=== PATIENT | male | born 1965 | race Two or more races ===

== ENCOUNTER 2020-08-18 07:50 | Outpatient (REF) | payer OTHER, SELFPAY ==
[2020-08-18 08:38] LABS: Hematocrit 40.9 % (42-52); Hemoglobin 13.3 g/dl (14.0-18.0); Mean Corpuscular HGB Conc 32.5 g/dl (31.0-36.0); Mean Corpuscular Hemoglobin 30.4 pg (27.0-33.0); Mean Corpuscular Volume 93.4 fL (80-98); Mean Platelet Volume 10.2 fL (9.4-12.4); Platelet Count 208 X10*3/uL (160-400); Red Blood Count 4.38 X10*6/uL (4.60-5.80); Red Cell Distribution Width 12.9 % (11.0-16.0); White Blood Count 4.9 X10*3/uL (4.8-10.8)
[2020-08-18 10:01] LABS: Alanine Aminotransferase 32 U/L (0-40); Albumin Level 4.4 g/dL (3.5-5.0); Alkaline Phosphatase 59 U/L (39-117); Anion Gap 11 (12-20); Aspartate Amino Transferase 21 U/L (5-37); Bilirubin Total 0.8 mg/dL (0.0-1.0); Blood Urea Nitrogen 20 mg/dL (9-16); Calcium 8.9 mg/dL (8.4-10.2); Carbon Dioxide 29 mmol/L (22-29); Chloride 107 mmol/L (96-108); Cholesterol 147 mg/dL; Estimated Average Glucose 108 mg/dL; Estimated Glomerular Filt Rate > 60; Glucose Fasting 94 mg/dL (60-99); HDL Cholesterol 56 mg/dL; Hemoglobin A1c % 5.4 %; LDL Cholesterol Calculated 77 mg/dl; Potassium 4.2 mmol/L (3.3-5.1); Sodium 143 mmol/L (135-145); Total Protein 6.8 g/dL (6.5-8.0); Triglycerides 72 mg/dL
== END 2020-08-18 07:51 | disposition home or self-care (01) ==
LOC: HO.LAB 07:50
PROVIDERS: PCP Internal Medicine; Visit Provider Physician Assistant
DX: Z13.220 Encounter for screening for lipoid disorders (principal); Z13.29 Encounter for screening for other suspected endocrine disorder; Z12.5 Encounter for screening for malignant neoplasm of prostate; I10 Essential (primary) hypertension
CPT/HCPCS: 36415; 80053; 80061; 83036; 84153; 84443; 85027

== ENCOUNTER 2021-03-07 08:04 | Outpatient (REF) | payer OTHER, SELFPAY ==
[2021-03-07 08:55] LABS: Hematocrit 41.9 % (42-52); Hemoglobin 13.9 g/dl (14.0-18.0); Mean Corpuscular HGB Conc 33.2 g/dl (31.0-36.0); Mean Corpuscular Hemoglobin 30.3 pg (27.0-33.0); Mean Corpuscular Volume 91.5 fL (80-98); Mean Platelet Volume 10.3 fL (9.4-12.4); Platelet Count 200 X10*3/uL (160-400); Red Blood Count 4.58 X10*6/uL (4.60-5.80); Red Cell Distribution Width 13.2 % (11.0-16.0); White Blood Count 4.2 X10*3/uL (4.8-10.8)
[2021-03-07 09:03] LABS: Estimated Average Glucose 111 mg/dL; Hemoglobin A1c % 5.5 %
[2021-03-07 09:15] LABS: Alanine Aminotransferase 35 U/L (0-40); Albumin Level 4.6 g/dL (3.5-5.0); Alkaline Phosphatase 71 U/L (39-117); Anion Gap 12 (12-20); Aspartate Amino Transferase 24 U/L (5-37); Bilirubin Total 1.6 mg/dL (0.0-1.0); Blood Urea Nitrogen 13 mg/dL (9-16); Calcium 9.5 mg/dL (8.4-10.2); Carbon Dioxide 26 mmol/L (22-29); Chloride 108 mmol/L (96-108); Cholesterol 142 mg/dL; Estimated Glomerular Filt Rate > 60; Glucose Fasting 104 mg/dL (60-99); HDL Cholesterol 55 mg/dL; LDL Cholesterol Calculated 74 mg/dl; Potassium 4.2 mmol/L (3.3-5.1); Sodium 142 mmol/L (135-145); Total Protein 7.1 g/dL (6.5-8.0); Triglycerides 69 mg/dL
[2021-03-07 09:37] LABS: Prostate Specific Antigen Scr 0.45 ng/mL (<0.05-4.0); TSH reflex Free T4 1.43 uIU/mL (0.32-4.0)
== END 2021-03-07 08:05 | disposition home or self-care (01) ==
LOC: HO.LAB 08:04
PROVIDERS: PCP Internal Medicine; Visit Provider Physician Assistant
DX: Z12.5 Encounter for screening for malignant neoplasm of prostate (principal); Z13.29 Encounter for screening for other suspected endocrine disorder; Z13.220 Encounter for screening for lipoid disorders; I10 Essential (primary) hypertension
CPT/HCPCS: 36415; 80053; 80061; 83036; 84153; 84443; 85027

== ENCOUNTER 2022-03-27 08:40 | Outpatient (REF) | payer OTHER, SELFPAY ==
[2022-03-27 09:27] LABS: Hemoglobin 13.2 g/dl (14.0-18.0); Mean Corpuscular HGB Conc 32.2 g/dl (31.0-36.0); Mean Corpuscular Hemoglobin 30.5 pg (27.0-33.0); Mean Corpuscular Volume 94.7 fL (80.0-98.0); Mean Platelet Volume 10.5 fL (9.4-12.4); Platelet Count 195 X10*3/uL (160-400); Red Blood Count 4.33 X10*6/uL (4.60-5.80); Red Cell Distribution Width 13.1 % (11.0-16.0); White Blood Count 3.8 X10*3/uL (4.8-10.8)
[2022-03-27 10:29] LABS: Alanine Aminotransferase 38 U/L (0-40); Albumin Level 4.2 g/dL (3.5-5.0); Alkaline Phosphatase 59 U/L (39-117); Anion Gap 14 (12-20); Aspartate Amino Transferase 23 U/L (5-37); Bilirubin Total 1.3 mg/dL (0.0-1.0); Blood Urea Nitrogen 13 mg/dL (9-16); Calcium 9.3 mg/dL (8.4-10.2); Carbon Dioxide 28 mmol/L (22-29); Chloride 104 mmol/L (96-108); Cholesterol 125 mg/dL; Estimated Glomerular Filt Rate > 60; Glucose Fasting 95 mg/dL (60-99); HDL Cholesterol 59 mg/dL; LDL Cholesterol Calculated 55 mg/dl; Potassium 4.2 mmol/L (3.3-5.1); Sodium 142 mmol/L (135-145); Total Protein 6.6 g/dL (6.5-8.0); Triglycerides 59 mg/dL
[2022-03-27 10:44] LABS: Prostate Specific Antigen Scr 0.26 ng/mL (<0.05-4.0); TSH reflex Free T4 0.61 uIU/mL (0.32-4.0)
== END 2022-03-27 08:41 | disposition home or self-care (01) ==
LOC: HO.LAB 08:40
PROVIDERS: PCP Physician Assistant; Visit Provider Physician Assistant
DX: Z13.220 Encounter for screening for lipoid disorders (principal); Z13.1 Encounter for screening for diabetes mellitus; Z13.29 Encounter for screening for other suspected endocrine disorder; Z12.5 Encounter for screening for malignant neoplasm of prostate
CPT/HCPCS: 36415; 80053; 80061; 84153; 84443; 85027

== ENCOUNTER 2022-07-12 10:38 | Outpatient (REF) | payer OTHER, SELFPAY ==
--- NOTE | ~2022-07-12 | XR_ITS ---
EXAMINATION: XR elbow LT min 3V, XR elbow RT min 3V CLINICAL INFORMATION: Reason for Exam M25.521 - Pain in right elbow COMPARISON: None. TECHNIQUE: AP, lateral, and oblique views of the bilateral elbows XR/XR elbow LT min 3V FINDINGS/IMPRESSION: * No acute fracture or dislocation. * Joint spaces are maintained without significant degenerative change. Insertional olecranon enthesopathy. * No soft tissue abnormality.
--- NOTE | ~2022-07-12 | XR_ITS ---
EXAMINATION: XR elbow LT min 3V, XR elbow RT min 3V CLINICAL INFORMATION: Reason for Exam M25.521 - Pain in right elbow COMPARISON: None. TECHNIQUE: AP, lateral, and oblique views of the bilateral elbows XR/XR elbow RT min 3V FINDINGS/IMPRESSION: * No acute fracture or dislocation. * Joint spaces are maintained without significant degenerative change. Insertional olecranon enthesopathy. * No soft tissue abnormality.
[2022-07-12 12:36] LABS: Rheumatoid Factor < 13.0 IU/mL (<15.0)
[2022-07-12 12:48] LABS: Vitamin D 25-OH Total 27.4 ng/mL (>30)
[2022-07-12 13:21] LABS: CT PCR NOT DETECTED (Not Detect.); NG PCR NOT DETECTED (Not Detect.)
[2022-07-13 05:41] LABS: Syphilis Screen Nonreactive (Nonreactive)
[2022-07-13 06:36] LABS: HBc Num1 0.07 S/CO (0.00-0.79); HBsAGNum1 0.26 S/CO (0.00-0.99); HIV AB/AG Nonreactive (Nonreactive); HIV Num 1 0.08 S/CO (0.00-0.99); Hepatitis B Core Antibody Nonreactive (Nonreactive); Hepatitis B Surface Antigen Negative (Negative); ~HepC Num1 0.08 S/CO (0.00-0.79); ~Hepatitis B Surface Antibody NONREACTIVE (Nonreactive); ~Hepatitis C Antibody Nonreactive (Nonreactive)
[2022-07-15 13:39] LABS: Anti Nuclear Antibody Screen NEGATIVE (NEGATIVE)
== END 2022-07-12 10:39 | disposition home or self-care (01) ==
LOC: HO.LAB 10:38
PROVIDERS: PCP Internal Medicine; Visit Provider Nurse Practitioner Family
DX: M13.0 Polyarthritis, unspecified (principal); M25.521 Pain in right elbow; M25.522 Pain in left elbow; Z11.4 Encounter for screening for human immunodeficiency virus [HIV]; Z20.2 Contact with and (suspected) exposure to infections with a predominantly sexual mode of transmission; E55.9 Vitamin D deficiency, unspecified
CPT/HCPCS: 0353U; 73080; 82306; 86038; 86039; 86431; 86704; 86706; 86780; 86803; 87340; 87389

== ENCOUNTER → 2022-08-07 10:51 | Outpatient (BNVA) | payer OTHER, SELFPAY | PROVIDERS: PCP Internal Medicine; Visit Provider Nurse Practitioner Family | DX: Z13.89 Encounter for screening for other disorder (principal) ==

== ENCOUNTER 2023-03-13 08:24 | Outpatient (AMB) | payer OTHER, SELFPAY ==
[2023-03-13 08:36] VITALS: BP 122/80; PULSE 78; O2SAT 98; BMI 21.6
--- NOTE | 2023-03-13 08:36 | MHC.PC.OV ---
Vital Signs 03/13/23 08:36 Height 5 ft 5 in Weight 130 lb BMI 21.6 BP 122/80 Blood Pressure Location Lt brachial Position Sitting Pulse 78 Pulse Source Pulse Oximeter Pulse Oximetry (%) 98 Oxygen Delivery Method Room Air Intake Visit Reasons: PE Allergies Sulfa (Sulfonamide Antibiotics) [SULFA(SULFONAMIDE ANTIBIOTICS)] Allergy (Unknown, Verified 03/13/23 08:47) HIVES Medication List - Last Reconciled 03/13/23 by Pee Mosquera PA-C bisacodyl (Dulcolax (bisacodyl)) 10 mg (2 x 5 mg) PO ONCE 1 day cholecalciferol (vitamin D3) 25 mcg PO DAILY fexofenadine 180 mg PO DAILY PRN lorazepam 0.5 mg PO DAILY PRN 30 days nystatin 1 appl topical DAILY 15 days polyethylene glycol 3350 (Miralax) 238 grams PO ONCE sildenafil 100 mg PO DAILY tacrolimus 0.1% 1 appl topical DAILY terbinafine HCl 1% 1 appl topical BID 15 days Tobacco use date assessed: 07/12/22 Dental Screening Dental Screen Date: 03/13/23 Did you have a dental visit in the last 12 months?: Yes Did you have a dental problem in the last 6 months where you did not have access to dental care?: No Was dental information given to patient?: Patient has dentist HPI PE HPI Details Patient is a 57-year-old male here today for routine annual physical.? Patient has a past history significant for vitamin-D deficiency, BPH generalized anxiety disorder. concerns--> Report having multiple joint that have been in pain at times , has not used any [id number]-fctgzia anti arthritic medication. He reports a distant history of Lyme disease that was treated and wonders if this is related. Yes use diclofenac oral medication toe and feels it was effective. He is not interested in any physical therapy at this time. ARSALAN : Report having worsening anxiety. Reports his triggers are crowded places and his workplace.? He does use low-dose lorazepam on a very limited p.r.n. basis for panic attacks. Vaccine: UTD with td, UTD with COVID vac , gotten flu vaccine today, need Shingles vaccine Colonoscopy: Due for repeat colonoscopy, has bowel prep solution available to him. [facility] Medical History Peripheral vascular disease Macrocytosis without anemia Lyme disease Allergic rhinitis Vitamin D deficiency BPH (benign prostatic hyperplasia) Anxiety GERD (gastroesophageal reflux disease) Benign positional vertigo Erectile dysfunction Surgical History History of undescended testicle History of vasectomy History of inguinal hernia repair Family History Father Cancer Mother Hypertension Maternal Grandmother Myocardial infarction Social History (Updated 03/13/23 @ 08:50 by Pee Mosquera PA-C) Housing: House Alcohol intake: current Alcohol intake frequency: holidays/special occasions only Alcohol type: beer Patient Tobacco Use Status: Never used Tobacco e-Cigarette/Vaping Use: Never Used Second Hand Smoke Exposure: No service: No Current occupational status: employed 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 1. Little interest or pleasure in doing things: not at all 2. Feeling down, depressed, or hopeless: not at all 3. Trouble falling or staying asleep, or sleeping too much: not at all 4. Feeling tired or having little energy: not at all 5. Poor appetite or overeating: not at all 6. Feeling bad about yourself - or that you are a failure or have let yourself or your family down: not at all 7. Trouble concentrating on things, such as reading the newspaper or watching television: not at all 8. Moving or speaking so slowly that other people could have noticed. Or the opposite - being so fidgety or restless that you have been moving around a lot more than usual: not at all 9. Thoughts that you would be better off or of hurting yourself in some way: not at all Total score: 0 Depression Screening Interpretation: Negative Depression Screening Done: Yes [id number] - PHQ-9 Billing: Yes Source: Developed by Drs. Percy Edward, Arabella Hinojosa, Remberto Hutchison and colleagues, with an educational liaan from [employer]. Thrive Questionnaire Date Thrive assessed: 07/12/22 AUDIT C Alcohol Use Questionnaire (AUDIT-C) 1. How often do you have a drink containing alcohol?: Monthly or less 2. How many drinks containing alcohol do you have on a typical day when you are drinking?: 1 or 2 3. How often do you have six or more drinks on one occasion?: Never Total Score: 1 Score Reviewed/Action Taken: No ARSALAN-7 AMB Questionnaire ARSALAN-7 Date ARSALAN - 7 assessed: 07/12/22 Source: Developed by Drs. Percy Edward, Arabella Hinojosa, Remberto Hutchison and colleagues, with an educational liana from [employer]. Review of Systems Const Denies body aches, Denies chills, Denies excessive sweating, Denies fatigue, Denies fever(s) and Denies headache(s) Eyes Denies blurry vision ENT Denies dysphagia, Denies vertigo, Denies dizziness, Denies headache(s), Denies hearing loss and Denies tinnitus Card Denies chest pain, Denies chest pain with activity, Denies syncope, Denies irregular heart rhythm and Denies dyspnea Resp Denies chest congestion, Denies cough, Denies hemoptysis, Denies dyspnea and Denies wheezing GI Denies abdominal pain, Denies melena, Denies hematochezia, Denies coffee ground emesis, Denies dysphagia, Denies diarrhea, Denies nausea and Denies vomiting Denies difficulty urinating, Denies dysuria, Denies urinary frequency, Denies urinary hesitancy and Denies urinary urgency Musc Denies arthralgias, Denies limited range of motion, Denies muscle cramps and Denies muscle weakness Skin/Breast Denies rash and Denies skin ulcer Neuro Denies Abnormal speech present, Denies confusion, Denies vertigo, Denies dizziness, Denies syncope, Denies headache(s), Denies memory loss and Denies seizure-like activity Psych Denies anxiety, Denies confusion, Denies depression, Denies memory loss, Denies panic attacks and Denies paranoia Endo Denies excessive sweating, Denies fatigue, Denies flushing, Denies polydipsia and Denies polyuria Aller/Immun Denies wheezing Physical exam (Primary Care) Vital Signs: Last Vital Signs Pulse 78 03/13/23 08:36 BP 122/80 03/13/23 08:36 Pulse Ox 98 03/13/23 08:36 Oxygen Delivery Method Room Air 03/13/23 08:36 BMI result Body Mass Index 21.6 Tobacco/Smoking Status: Tobacco use Status Tobacco use date assessed 07/12/22 03/13/23 08:40 Patient Tobacco Use Status Never used Tobacco 03/13/23 08:40 Tobacco use type 03/06/22 08:59 e-Cigarette/Vaping Use Never Used 03/13/23 08:40 PHQ-9: PHQ-9 Score PHQ-9: Total score 0 03/13/23 08:40 Depression Screening Interpretation: Negative Thrive Assessment: Date of Thrive Assessment Date Thrive assessed 07/12/22 03/13/23 08:40 Const General: cooperative, comfortable, no acute distress, alert and awake; No confusion Orientation/consciousness: oriented to person, oriented to place, patient oriented x3 and No confusion HENMT Head: Yes normocephalic Ears: external ears normal and TM's normal bilaterally Face and sinus: No sinus tenderness Mouth: Normal oral and palatal mucosa present and tongue normal Teeth and gingiva: dentition normal and gingiva normal Throat: Yes posterior oropharynx normal, Yes tonsils normal and Yes uvula midline Eyes Conjunctivae: conjunctivae normal Sclerae: sclerae normal Pupils: Equal, round and reactive pupils present EOM: EOMs intact bilaterally Direct Ophthalmoscopy: No no photophobia Neck Neck: Yes no lymphadenopathy, No tender and Yes no JVD Thyroid: Thyroid normal Carotids: no bruits Chest Chest palpation & inspection: no tenderness Resp Effort & Inspection: normal respiratory effort, no audible wheezes, not labored and no stridor Auscultation: no crackles, no rales, no rhonchi and no wheezes Cardio Jugular venous distension: no JVD Rate: regular rate, not bradycardic and not tachycardic Rhythm: regular rhythm Bruits: no carotid bruits Peripheral pulses: Peripheral pulses 2+ throughout GI Inspection: Yes normal to inspection, No abdominal wall ecchymosis and No visible herniation Palpation (GI): Soft to palpation, nontender, no guarding, not rigid and No hepatosplenomegaly present Auscultation: normoactive bowel sounds General: Yes no CVA tenderness Back/Spine/Pelvis Back: no CVA tenderness and No back tenderness Cervical Spine: cervical ROM normal Thoracic/Lumbar Spine: thoracic and lumbar spine normal to inspection, straight leg raise negative bilaterally, No thoraco-lumbar ROM limited and No lumbar spinal tenderness Skin Lesions: no lesions Rashes: no rashes Wounds: no wounds Neuro General: oriented to person, oriented to place, patient oriented x3, CN's II-XI intact bilaterally and No confusion Cranial nerves: Yes Equal, round and reactive pupils present and Yes Normal accommodation reflex present Cognition (Neuro): normal cognition Speech: No Abnormal speech present Gait exam (Neuro): Normal gait present Motor exam (neuro): 5/5 motor strength present throughout Extrem Right upper extremity: full ROM; no cyanosis Left upper extremity: full ROM; no cyanosis Right lower extremity: no edema Left lower extremity: no edema Psych Appearance: grossly normal Mental Status: mental status grossly normal Affect: normal affect Attitude: cooperative Thought process: Normal thought process present Office Procedures Flu Questionnaire Does the patient have a severe egg allergy?: No Does the patient have severe life threatening allergies?: No Does the patient have a fever or illness today?: No Has the patient ever had Guillain-[place] Syndrome?: No Has the patient ever had any past reaction to a flu shot?: No Immunizations flu vacc [id number] 6mos up(PF) 60 mcg(15 mcgx4)/0.5 mL IM syringe Performing Provider: Pee Mosquera PA-C [facility] Administered by: Zenia Rice CMA on 03/13/23 08:42 Dose Route Admin Location Dispensed Lot Number Expiration Date NDC Assistant [employer] 0.5 mL IM Left Deltoid 0.5 mL [id number] 11/17/23 69012-394-62 [place] VIS Given Date VIS Provided VIS Publication Date 03/13/23 Single Vaccine 20 Eligibility Eligibility Date Funding Source Not [facility] Eligible 03/13/23 Private Assessment and Plan Assessment & Plan (1) Annual physical exam: Code(s): Z00.00 - Encounter for general adult medical examination without abnormal findings (2) ARSALAN (generalized anxiety disorder): Code(s): F41.1 - Generalized anxiety disorder Plan: mild anxiety which has been an existing condition for him. Does use lorazepam 0.5 mg on a very limited p.r.n. basis. (3) Polyarthritis: Code(s): M13.0 - Polyarthritis, unspecified Plan: Patient reporting polyarthritis pain. Has tried diclofenac oral that was not effective. Was trialed new med meloxicam . We did discuss the possibility of using Voltaren 1% cream on painful joints. Will consider rheumatology referral and repeat Lyme testing. Orders: Orders Vitamin D 25-OH Total Today R79.89 - Other specified abnormal findings of blood chemistry Influenza [id number] Immunization Today Z23 - Encounter for immunization Comprehensive [place]. Panel Fast Today Z13.1 - Encounter for screening for diabetes mellitus Prostate Specific Antigen Scr Today Z12.5 - Encounter for screening for malignant neoplasm of prostate, Z13.1 - Encounter for screening for diabetes mellitus Coding Level of Care Code New Pt Prev Care 40-64y(59112) Diagnoses Annual physical exam Z00.00 ARSALAN (generalized anxiety disorder) F41.1 Polyarthritis M13.0
== END 2023-03-13 09:07 | disposition home or self-care (01) ==
PROVIDERS: PCP Internal Medicine; Visit Provider Physician Assistant
DX: Z00.00 Encounter for general adult medical examination without abnormal findings (principal); F41.1 Generalized anxiety disorder; M13.0 Polyarthritis, unspecified; Z23 Encounter for immunization
CPT/HCPCS: 90471; 90686; 99386

== ENCOUNTER 2023-04-01 07:57 | Outpatient (REF) | payer OTHER, SELFPAY ==
[2023-04-01 10:08] LABS: Alanine Aminotransferase 41 U/L (0-40); Albumin Level 4.4 g/dL (3.5-5.0); Alkaline Phosphatase 56 U/L (39-117); Anion Gap 10 (12-20); Aspartate Amino Transferase 24 U/L (5-37); Bilirubin Total 1.2 mg/dL (0.0-1.0); Blood Urea Nitrogen 15 mg/dL (9-16); Calcium 9.4 mg/dL (8.4-10.2); Carbon Dioxide 28 mmol/L (22-29); Chloride 107 mmol/L (96-108); Estimated Glomerular Filt Rate > 60; Glucose Fasting 99 mg/dL (60-99); Potassium 4.5 mmol/L (3.3-5.1); Sodium 140 mmol/L (135-145); Total Protein 7.1 g/dL (6.5-8.0)
[2023-04-01 10:09] LABS: Vitamin D 25-OH Total 43.8 ng/mL (>30)
[2023-04-01 10:10] LABS: Prostate Specific Antigen Scr 1.68 ng/mL (<0.05-4.0)
== END 2023-04-01 07:58 | disposition home or self-care (01) ==
LOC: HO.LAB 07:57
PROVIDERS: PCP Internal Medicine; Visit Provider Physician Assistant
DX: Z12.5 Encounter for screening for malignant neoplasm of prostate (principal); Z13.1 Encounter for screening for diabetes mellitus; E55.9 Vitamin D deficiency, unspecified
CPT/HCPCS: 36415; 80053; 82306; 84153

== ENCOUNTER 2023-07-29 11:57 | Day surgery (SDC) | payer OTHER, SELFPAY ==
--- NOTE | 2023-07-25 10:57 | HO.ANESPROP2 ---
Documented by User: Tanya Dewey NP 07/25/23 10:57 HPI - Anesthesia Eval Consult details Narrative: 58yo M for Colonoscopy PMFSH Active Problems Active Problems: All Active Problems (Updated 07/20/22 @ 13:05 by MARJ Cruz) Low vitamin D level (Acute) Routine screening for STI (sexually transmitted infection) (Acute) Pain of both elbows (Acute) Colon cancer screening (Acute) Polyarthritis (Acute) Annual physical exam (Acute) ARSALAN (generalized anxiety disorder) (Acute) Annual physical exam (Acute) Tinea pedis (Acute) Screening for hypothyroidism (Acute) Screening for hypercholesterolemia (Acute) Screening for diabetes mellitus (DM) (Acute) Allergic rhinitis (Acute) Vitamin D deficiency (Acute) BPH (benign prostatic hyperplasia) (Acute) Anxiety (Acute) GERD (gastroesophageal reflux disease) (Acute) Erectile dysfunction (Acute) Skin lesion (Acute) Past Medical History Medical History Peripheral vascular disease Macrocytosis without anemia Lyme disease Allergic rhinitis Vitamin D deficiency BPH (benign prostatic hyperplasia) Anxiety GERD (gastroesophageal reflux disease) Benign positional vertigo Erectile dysfunction Family History Family History Father Cancer Mother Hypertension Maternal Grandmother Myocardial infarction Surgical History Surgical History Hx of colonoscopy History of undescended testicle History of vasectomy History of inguinal hernia repair Social History Social History (Updated 03/13/23 @ 08:50 by Pee Mosquera PA-C) Housing: House Alcohol intake: current Alcohol intake frequency: does not drink Alcohol type: beer Patient Tobacco Use Status: Never used Tobacco e-Cigarette/Vaping Use: Never Used Second Hand Smoke Exposure: No Use of substances other than those prescribed or required for medical reasons: No Are you DNR?: No Advance Directives: No Advance Directives Information Provided: Yes service: No Current occupational status: employed 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 Current occupational exposures/hazards: No Cognitive needs: No Hearing needs: No Vision needs: Yes Meds Allergies Allergy/AdvReac Type Severity Reaction Status Date / Time Sulfa (Sulfonamide Allergy Intermediate HIVES Verified 07/29/23 12:14 Antibiotics) [SULFA(SULFONAMIDE ANTIBIOTICS)] Home Medications Medication Instructions Recorded Confirmed Last Taken Type tacrolimus 0.1 % topical ointment 1 appl topical DAILY 07/29/23 07/29/23 Unknown History Exam Pertinent Lab Results Pertinent Lab Results: Laboratory Tests 03/27/22 04/01/23 08:56 08:17 WBC 3.8 L Hgb 13.2 L Hct 41.0 L Plt Count 195 Sodium 140 Potassium 4.5 Chloride 107 Carbon Dioxide 28 BUN 15 Creatinine 0.80 Documented by User: Luana Moseley MD 07/29/23 12:40 PMFSH Past Medical History Medical History Peripheral vascular disease Macrocytosis without anemia Lyme disease Allergic rhinitis Vitamin D deficiency BPH (benign prostatic hyperplasia) Anxiety GERD (gastroesophageal reflux disease) Benign positional vertigo Erectile dysfunction Family History Family History Father Cancer Mother Hypertension Maternal Grandmother Myocardial infarction Family history of problems with anesthesia: No Surgical History Surgical History Hx of colonoscopy History of undescended testicle History of vasectomy History of inguinal hernia repair History of Problems with Anesthesia: No Social History Social History (Updated 03/13/23 @ 08:50 by Pee Mosquera PA-C) Housing: House Alcohol intake: current Alcohol intake frequency: does not drink Alcohol type: beer Patient Tobacco Use Status: Never used Tobacco e-Cigarette/Vaping Use: Never Used Second Hand Smoke Exposure: No Use of substances other than those prescribed or required for medical reasons: No Are you DNR?: No Advance Directives: No Advance Directives Information Provided: Yes service: No Current occupational status: employed 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 Current occupational exposures/hazards: No Cognitive needs: No Hearing needs: No Vision needs: Yes Meds Allergies Allergy/AdvReac Type Severity Reaction Status Date / Time Sulfa (Sulfonamide Allergy Intermediate HIVES Verified 07/29/23 12:14 Antibiotics) [SULFA(SULFONAMIDE ANTIBIOTICS)] Home Medications Medication Instructions Recorded Confirmed Last Taken Type tacrolimus 0.1 % topical ointment 1 appl topical DAILY 07/29/23 07/29/23 Unknown History Exam Airway Mallampati Class: II TM Dist: >3cm Neck ROM: Full Heart: rrr Lungs: cta Assessment and Plan Assessment Anesthesia Assessment: Anesthesia Plan Discussed and Chart Reviewed Final Anesthetic Review Family History of Problems with Anesthesia: No History of Problems with Anesthesia: No NPO: Yes ASA Class: II Final Preanesthetic Review: No Changes in Pt Med Stat, Meds/Allgs Chart Reviewed and Consent Obtained/Reviewed Patient Risk: Low Procedure Risk: Low Anesthetic Plan Anesthetic Plan: MAC: Disposition: Standard PACU
[2023-07-29 12:06] VITALS: BP 134/70; PULSE 86; RESP 16; TEMP 37; O2SAT 99; BMI 24.1
[2023-07-29] MEDS: Lactated Ringers 1,000 ML 100 ML IVCONT (12:25)
--- NOTE | 2023-07-29 13:14 | MHC.SHP ---
Pre-Procedural Eval Section A - 24 Hr Update-Section A only Date of Service: 07/29/23 The patient is an INPATIENT: No The patient has been examined within 24 hours of the surgical procedure. The History & Physical has been completed within 30 days and I have reviewed it.: No Section B - Complete if H&P > 30 days Chief Complaint: Colon cancer screening Relevant Family History (Specify if Yes): No Relevant Social History: None Present Medications: see Short Stay Collaborative assessment Medical History: Significant History (Benign positional vertigo BPH (benign prostatic hyperplasia) Erectile dysfunction GERD (gastroesophageal reflux disease) Lyme disease Macrocytosis without anemia Peripheral vascular disease Vitamin D deficiency) History of Previous Operations: Relevant previous surgery/procedure and date(s) (History of inguinal hernia repair History of undescended testicle History of vasectomy) Allergies: Allergies Allergy/AdvReac Type Severity Reaction Status Date / Time Sulfa (Sulfonamide Allergy Intermediate HIVES Verified 07/29/23 12:14 Antibiotics) [SULFA(SULFONAMIDE ANTIBIOTICS)] Review of Systems Sugical H&P ROS: Negative: Constitution, Cardiovascular, Respiratory and Gastrointestinal Exam Surgical H&P Exam: Normal: Heart, Normal: Lungs, Normal: Extremities and Normal: Abdomen Plan I have reviewed the history and physical and performed a pertinent physical examination on my patient. No changes have occurred unless specified. Time Spent With Patient Time: Total time managing care of this patient today ____ minutes.
--- NOTE | 2023-07-29 13:26 | P.OP_ITS ---
Operative Note Operative Note Date of Service: 07/29/23 Narrative: COLONOSCOPY TILL CECUM WITH BIOPSIES AND SNARE POLYPECTOMY Pre-op diagnosis: Colon cancer screening. Post-op diagnosis:? Colon polyps, Diverticulosis, hemorrhoids Endoscopist:? Ana Cervantes MD Anesthesia:?MAC Consent: Indications for the procedure and potential complications of bleeding, perforation, reaction to medications and missed diagnosis were discussed with the patient and informed consent was obtained. Instrument: Olympus PCF H 190 L variable stiffness pediatric colonoscope Monitoring: Vital signs and clinical assessment, intermittent blood pressure monitoring, continuous EKG monitoring, Pulse oximetry and Carbon Dioxide monitoring were done throughout the procedure. Please see anesthesia flowsheet. Colon withdrawl time was 24 minutes. Procedure: The patient was placed in the left lateral decubitis position and pre-procedure medications were administered. After a digital rectal examination of the ano-rectum, the video colonoscope was inserted into the rectum and advanced through the colon to the cecum. The colonoscope was slowly withdrawn in a retrograde panoramic fashion and the colon mucosa was carefully examined including a retroflexed view of the rectum. Findings and interventions are described below. Procedure Difficulty: without difficulty Findings: Terminal Ileum: Not evaluated Cecum: A 5-6 mm diminutive appearing polyp adjacent to appendicular orifice - removed with a cold biopsy Ascending Colon: Normal Transverse Colon: A 7-8 mm sessile polyp -removed with a cold snare Descending Colon: Moderate diverticulosis Sigmoid Colon: Moderate diverticulosis Rectum: Normal Ano-rectum: Moderate internal hemorrhoids Colon preparation: , Good after copious irrigation. There was scattered undigested vegetable matter which could not be suctioned. [place] Bowel Preparation Scale Right colon; 2 Transverse colon: 2 Left colon; 2 (0 = Unprepared colon segment with mucosa not seen due to solid stool that cannot be cleared. 1 = Portion of mucosa of the colon segment seen, but other areas of the colon segment not well seen due to staining, residual stool and/or opaque liquid. 2 = Minor amount of residual staining, small fragments of stool and/or opaque liquid, but mucosa of colon segment seen well. 3 = Entire mucosa of colon segment seen well with no residual staining, small fragments of stool or opaque liquid) Impression and Post Procedure Diagnosis: Colonoscopy Findings: Two small polyps were removed Moderate diverticulosis seen in the left colon Moderate hemorrhoids on retroflexed exam. Plan: Pt has a FU appointment on 08/12/23 with [facility] Repeat Colonoscopy in 5 years if polyps are adenomatous and 10 year if polyps are hyperplastic. Above findings were reviewed with the patient and relevant handouts were given and the discharge area.
[2023-07-29 14:15] VITALS: BP 97/50; PULSE 86; RESP 18; TEMP 36.4; O2SAT 97
[2023-07-29 14:30] VITALS: BP 113/62; PULSE 72; RESP 16; TEMP 36.3; O2SAT 98
== END 2023-07-29 15:01 | disposition home or self-care (01) ==
PROVIDERS: PCP Internal Medicine; Visit Provider Internal Medicine Gastroenterology
PROC: 0DJD8ZZ Inspection of Lower Intestinal Tract, Via Natural or Artificial Opening Endoscopic (ICD-10-PCS; CPT 45378; principal; 2023-07-29 13:30)
DX: Z12.11 Encounter for screening for malignant neoplasm of colon (principal); D12.3 Benign neoplasm of transverse colon; K63.5 Polyp of colon; K57.30 Diverticulosis of large intestine without perforation or abscess without bleeding; K64.8 Other hemorrhoids; N40.0 Benign prostatic hyperplasia without lower urinary tract symptoms; K21.9 Gastro-esophageal reflux disease without esophagitis; D75.89 Other specified diseases of blood and blood-forming organs; J30.9 Allergic rhinitis, unspecified; E55.9 Vitamin D deficiency, unspecified; H81.10 Benign paroxysmal vertigo, unspecified ear; I73.9 Peripheral vascular disease, unspecified; Z79.899 Other long term (current) drug therapy; Z88.2 Allergy status to sulfonamides; Z98.52 Vasectomy status
CPT/HCPCS: 45385; 45380; 88305; J2704

== ENCOUNTER → 2023-07-29 11:57 | Outpatient (BNV) | payer OTHER, SELFPAY | PROVIDERS: PCP Internal Medicine; Visit Provider Internal Medicine Gastroenterology | DX: Z12.11 Encounter for screening for malignant neoplasm of colon (principal); D12.3 Benign neoplasm of transverse colon; K63.5 Polyp of colon; K57.90 Diverticulosis of intestine, part unspecified, without perforation or abscess without bleeding; K64.8 Other hemorrhoids | CPT/HCPCS: 45380; 45385 ==

== ENCOUNTER 2023-08-12 12:05 | Outpatient (AMB) | payer OTHER, SELFPAY ==
--- NOTE | 2023-08-12 12:21 | MHC.OFFVIS ---
Intake Vital Signs 08/12/23 12:23 Height 5 ft 5 in Weight 146 lb 6.191 oz BMI 24.4 BP 144/77 H Blood Pressure Location Rt brachial Position Sitting Pulse 85 Intake Visit Reasons: s/p colon Intake Note: Patient presents in follow s/p colonoscopy. CC: Patient reports doing well and denies having any GI symptoms today. Contractor General Building Required: No Accompanied by: Self / Same As Patient Allergies Sulfa (Sulfonamide Antibiotics) [SULFA(SULFONAMIDE ANTIBIOTICS)] Allergy (Intermediate, Verified 07/29/23 12:14) HIVES HPI s/p colon HPI Details LAST VISIT: Colon cancer screening Patient denies any GI, cardiac or respiratory symptoms.? Denies any issues with anesthesia in the past.? Denies any history of sleep apnea.? No history infectious diseases in the past or present.? Not on any anticoagulation therapy.? No family or personal history of colon cancer or polyps.? Patient denies melena, hematochezia, unintentional weight loss or ribbon like stools.? Discussed at length the pre-procedure,? prep, diet & medications as well as what to expect prior, during and after the procedure.?? Stressed the importance of good bowel prep. ?Recommended the use of Vaseline or Calmoseptine OTC & baby wipes with bowel movements to promote comfort.? ?Patient verbalizes understanding and agrees to plan of care.? He was given the opportunity to ask questions and all questions answered.? We will see him after the procedure.? Plan Medications New bisacodyl (Dulcolax (bisacodyl)) take 2 tabs at noon the day before your colonoscopy 10 mg (2 x 5 mg) PO ONCE 1 day 2 tabs 0RF Z12.11 polyethylene glycol 3350 (Miralax) As directed by gastroenterology department at [facility] 238 grams PO ONCE 238 grams 0RF Z12.11 COLONOSCOPY: Findings: Terminal Ileum: Not evaluated Cecum: A 5-6 mm diminutive appearing polyp adjacent to appendicular orifice - removed with a cold biopsy Ascending Colon: Normal Transverse Colon: A 7-8 mm sessile polyp -removed with a cold snare Descending Colon: Moderate diverticulosis Sigmoid Colon: Moderate diverticulosis Rectum: Normal Ano-rectum: Moderate internal hemorrhoids Colon preparation: , Good after copious irrigation. There was scattered undigested vegetable matter which could not be suctioned. [place] Bowel Preparation Scale Right colon; 2 Transverse colon: 2 Left colon; 2 (0 = Unprepared colon segment with mucosa not seen due to solid stool that cannot be cleared. 1 = Portion of mucosa of the colon segment seen, but other areas of the colon segment not well seen due to staining, residual stool and/or opaque liquid. 2 = Minor amount of residual staining, small fragments of stool and/or opaque liquid, but mucosa of colon segment seen well. 3 = Entire mucosa of colon segment seen well with no residual staining, small fragments of stool or opaque liquid) Impression and Post Procedure Diagnosis: Colonoscopy Findings: Two small polyps were removed Moderate diverticulosis seen in the left colon Moderate hemorrhoids on retroflexed exam. Plan: Repeat Colonoscopy in 5 years if polyps are adenomatous and 10 year if polyps are hyperplastic. Above findings were reviewed with the patient and relevant handouts were given and the discharge area. PATHOLOGY RESULTS Diagnosis A. Colon, cecal polyp: Polypoid colonic mucosa with no specific change; no adenomatous dysplasia seen. B. Colon, transverse, polyp: Tubular adenoma; negative for high-grade dysplasia and carcinoma. TODAY'S VISIT Patient is here today for follow-up and to discuss colonoscopy results. Patient was found to have 1 tubular adenoma in transverse colon. Other was polypoid colonic mucosa with no specific change, no adenoma seen. Patient reports that he is doing well after the procedure. Denies any ill effects from the prep, anesthesia or procedure itself. Patient reports that he has been feeling well. Denies any melena, hematochezia, unintentional weight loss or ribbon like stools. Patient denies any dyspepsia, dysphagia or odynophagia. Moderate diverticulosis to left side of his colon as well as moderate internal hemorrhoids without complications seen. Patient reports that he is eating the same food mainly [place]. Does not use much fiber in his diet. [facility] Medical History (Updated 08/12/23 @ 20:52 by Kerline Up, SLEEVE SETTER LOCKSTITCH-) Internal hemorrhoids without complication Diverticulosis Tubular adenoma of colon Peripheral vascular disease Macrocytosis without anemia Lyme disease Allergic rhinitis Vitamin D deficiency BPH (benign prostatic hyperplasia) Anxiety GERD (gastroesophageal reflux disease) Benign positional vertigo Erectile dysfunction Surgical History Hx of colonoscopy History of undescended testicle History of vasectomy History of inguinal hernia repair Family History Father Cancer Mother Hypertension Maternal Grandmother Myocardial infarction Social History Housing: House Alcohol intake: current Alcohol intake frequency: does not drink Alcohol type: beer Patient Tobacco Use Status: Never used Tobacco e-Cigarette/Vaping Use: Never Used Second Hand Smoke Exposure: No service: No Current occupational status: employed 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 Current occupational exposures/hazards: No Cognitive needs: No Hearing needs: No Vision needs: Yes Review of Systems Const Denies weight gain and Denies weight loss ENT Reports no additional complaints, Denies dysphagia and Denies odynophagia Card Reports no additional complaints Resp Reports no additional complaints GI Denies abdominal pain, Denies belching, Denies melena, Denies bloating, Denies change in bowel habits, Denies dysphagia, Denies excessive flatus, Denies dyspepsia, Denies heartburn, Denies diarrhea, Denies loose stools, Denies nausea, Denies odynophagia and Denies vomiting Reports no additional complaints Musc Reports no additional complaints Neuro Reports no additional complaints Psych Reports no additional complaints Endo Reports no additional complaints Physical Exam Vital Signs: Last Vital Signs Pulse 85 08/12/23 12:23 BP 144/77 H 08/12/23 12:23 BMI result Body Mass Index 24.4 Const General: healthy appearing, no acute distress and well developed Nutritional Appearance: well nourished Orientation/consciousness: patient oriented x3 Resp Effort & Inspection: normal respiratory effort, able to speak in complete sentences, no tracheal deviation and symmetric chest movement Auscultation: clear to auscultation bilaterally Cardio Rate: regular rate GI Inspection: Yes normal to inspection and No distended Palpation (GI): Soft to palpation, not firm, nontender and No hepatosplenomegaly present Auscultation: normal bowel sounds General: Yes no CVA tenderness Back/Spine/Pelvis Back: no CVA tenderness Skin General skin exam: elasticity normal, turgor normal and dry skin Neuro General: patient oriented x3 Psych Appearance: grossly normal Mental Status: mental status grossly normal Affect: normal affect Assessment & Plan Assessment & Plan (1) Tubular adenoma of colon: Code(s): D12.6 - Benign neoplasm of colon, unspecified (2) Diverticulosis: Code(s): K57.90 - Diverticulosis of intestine, part unspecified, without perforation or abscess without bleeding (3) Internal hemorrhoids without complication: Code(s): K64.8 - Other hemorrhoids Plan One tubular adenoma seen on colonoscopy. Patient will return for colorectal screening in 5 years, sooner if clinically necessary. Moderate diverticulosis to left side of his colon. Discussed with patient the importance of increasing fiber in his diet. Patient will be given fiber supplement as well as probiotic to take daily. Patient denies any postprocedural complication or any GI symptoms today. He will follow-up in our office on as needed basis. He is agreeable to this plan and verbalizes understanding of instructions. He was given the opportunity to ask questions and all questions answered Thank you for allowing me to participate in his care Medications: New lactobacillus combination no.4 (Probiotic) administer with a meal 3,000 mmu cells PO DAILY 30 caps 5RF methylcellulose (laxative) (Citrucel) take it with full glass of water 500 mg PO DAILY 90 tabs 2RF K59.00 - Constipation, unspecified Coding Level of Care Code Est Pt Level 3 (20157) Diagnoses Tubular adenoma of colon D12.6 Diverticulosis K57.90 Internal hemorrhoids without complication K64.8 Time Spent (min) 25 Comment 15 minutes spent with patient and additional 10 minutes spent reviewing his records
[2023-08-12 12:23] VITALS: BP 144/77; PULSE 85; BMI 24.4
== END 2023-08-12 12:45 | disposition home or self-care (01) ==
PROVIDERS: PCP Internal Medicine; Visit Provider Nurse Practitioner Family
DX: D12.6 Benign neoplasm of colon, unspecified (principal); K57.90 Diverticulosis of intestine, part unspecified, without perforation or abscess without bleeding; K64.8 Other hemorrhoids
CPT/HCPCS: 99213

== ENCOUNTER → 2023-08-12 12:05 | Outpatient (BNVA) | payer OTHER, SELFPAY | PROVIDERS: PCP Internal Medicine; Visit Provider Nurse Practitioner Family ==

== ENCOUNTER 2023-10-28 09:51 | Outpatient (AMB) | payer OTHER, SELFPAY ==
--- NOTE | 2023-10-28 09:57 | MHC.PC.OV ---
Vital Signs 10/28/23 09:58 Height 5 ft 5 in Weight 149 lb 6 oz BMI 24.9 BP 124/72 Blood Pressure Location Lt brachial Position Sitting Pulse 84 Pulse Source Pulse Oximeter Pulse Oximetry (%) 98 Oxygen Delivery Method Room Air Intake Visit Reasons: Lump/mass Intake Note: The patient is here for a lump on the left side of the chest, which they noticed a few months ago. Brim And Crown Presser Required: No Accompanied by: Self / Same As Patient Allergies Sulfa (Sulfonamide Antibiotics) [SULFA(SULFONAMIDE ANTIBIOTICS)] Allergy (Intermediate, Verified 10/28/23 10:10) HIVES Medication List - Last Reconciled 10/28/23 by Pee Mosquera PA-C cholecalciferol (vitamin D3) 25 mcg PO DAILY lactobacillus combination no.4 (Probiotic) 3,000 mmu cells PO DAILY lorazepam 0.5 mg PO DAILY PRN 30 days methylcellulose (laxative) (Citrucel) 500 mg PO DAILY sildenafil 100 mg PO DAILY tacrolimus 0.1% 1 appl topical DAILY Tobacco use date assessed: 10/28/23 Dental Screening Dental Screen Date: 10/28/23 Did you have a dental visit in the last 12 months?: Yes Did you have a dental problem in the last 6 months where you did not have access to dental care?: No Was dental information given to patient?: Patient has dentist HPI Lump/mass HPI Details Patient is a 58-year-old male here today for problem visit. He reports he is found/noticed a lump over left side of his chest over the last few months. He has concerned about a left areolar lesion he has noted for quite awhile (> 1year). He denies any breast lumps, nipple retraction or nipple discharge. There has no family history of breast cancer. [facility] Medical History (Updated 10/28/23 @ 10:25 by Pee Mosquera PA-C) Internal hemorrhoids without complication Diverticulosis Tubular adenoma of colon Peripheral vascular disease Macrocytosis without anemia Lyme disease Allergic rhinitis Vitamin D deficiency BPH (benign prostatic hyperplasia) Anxiety GERD (gastroesophageal reflux disease) Benign positional vertigo Erectile dysfunction Surgical History Hx of colonoscopy History of undescended testicle History of vasectomy History of inguinal hernia repair Family History Father Cancer Mother Hypertension Maternal Grandmother Myocardial infarction Social History Housing: House Alcohol intake: current Alcohol intake frequency: does not drink Alcohol type: beer Patient Tobacco Use Status: Never used Tobacco e-Cigarette/Vaping Use: Never Used Second Hand Smoke Exposure: No service: No Current occupational status: employed 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 1. Little interest or pleasure in doing things: not at all 2. Feeling down, depressed, or hopeless: not at all 3. Trouble falling or staying asleep, or sleeping too much: not at all 4. Feeling tired or having little energy: not at all 5. Poor appetite or overeating: not at all 6. Feeling bad about yourself - or that you are a failure or have let yourself or your family down: not at all 7. Trouble concentrating on things, such as reading the newspaper or watching television: not at all 8. Moving or speaking so slowly that other people could have noticed. Or the opposite - being so fidgety or restless that you have been moving around a lot more than usual: not at all 9. Thoughts that you would be better off or of hurting yourself in some way: not at all Total score: 0 Depression Screening Interpretation: Negative Depression Screening Done: Yes 55177 - PHQ-9 Billing: Yes Source: Developed by Drs. Percy Edward, Arabella Hinojosa, Remberto Hutchison and colleagues, with an educational liana from [employer]. Thrive Questionnaire Date Thrive assessed: 10/28/23 I am a: Patient What is your living situation today?: I have a steady place to live Within the past 12 months, did the food you bought not last and you didn't have the money to get more?: Never true Within the past 12 months, did you worry whether your food would run out before you got money to buy more?: Never true Do you have trouble paying for medicines?: No Do you have trouble getting transportation to medical appointments?: No Do you have trouble paying your heating and electricity bill?: No Do you have trouble taking care of your child, family member or friend?: No Do you have trouble with day-to-day activities such as bathing, preparing meals, shopping, managing finances, etc.?: No Are you currently unemployed and looking for a job?: No Are you interested in more education?: No Please select the resources that you would like help with: None Currently or been in a relationship where the following occur: no concerns reported THRIVE Score: 0 AUDIT C Alcohol Use Questionnaire (AUDIT-C) 1. How often do you have a drink containing alcohol?: Monthly or less 2. How many drinks containing alcohol do you have on a typical day when you are drinking?: 1 or 2 3. How often do you have six or more drinks on one occasion?: Never Total Score: 1 Score Reviewed/Action Taken: No ARSALAN-7 AMB Questionnaire ARSALAN-7 Date ARSALAN - 7 assessed: 10/28/23 Feeling nervous, anxious, or on edge: 0 = Not at all Not being able to stop or control worryin = Not at all Worrying too much about different things: 0 = Not at all Trouble relaxin = Not at all Being so restless that it is hard to sit still: 0 = Not at all Becoming easily annoyed or irritable: 0 = Not at all Feeling afraid as if something awful might happen: 0 = Not at all Total ARSALAN-7 score (0-4 normal; 5-9 mild; 10-14 moderate; 15-21 severe): 0 Source: Developed by Drs. Percy Edward, Arabella Hinojosa, Remberto Hutchison and colleagues, with an educational liana from [employer]. ARSALAN-7 Assessment Billing ARSALAN-7 Assessment Tool: ARSALAN-7 Assessment 84650 Review of Systems Const Denies headache(s) Eyes Denies loss of vision ENT Denies vertigo, Denies dizziness, Denies headache(s) and Denies sore throat Card Denies chest pain, Denies leg edema and Denies lightheadedness Resp Denies cough, Denies hemoptysis and Denies wheezing GI Denies abdominal pain, Denies melena, Denies constipation, Denies diarrhea and Denies vomiting Denies dysuria, Denies urinary frequency and Denies urinary urgency Musc Denies arthralgias, Denies joint swelling, Denies numbness and Denies tingling Neuro Denies Abnormal speech present, Denies behavioral changes, Denies vertigo, Denies dizziness, Denies headache(s), Denies loss of vision, Denies memory loss, Denies numbness and Denies tingling Psych Denies anxiety, Denies behavioral changes, Denies depression, Denies memory loss and Denies panic attacks Sher/Lymph Denies easy bleeding and Denies easy bruising Aller/Immun Denies wheezing Physical exam (Primary Care) Vital Signs: Last Vital Signs Pulse 84 10/28/23 09:58 BP 124/72 10/28/23 09:58 Pulse Ox 98 10/28/23 09:58 Oxygen Delivery Method Room Air 10/28/23 09:58 BMI result Body Mass Index 24.9 Tobacco/Smoking Status: Tobacco use Status Tobacco use date assessed 10/28/23 10/28/23 10:09 Patient Tobacco Use Status Never used Tobacco 10/28/23 09:57 Tobacco use type 03/06/22 08:59 e-Cigarette/Vaping Use Never Used 10/28/23 09:57 PHQ-9: PHQ-9 Score PHQ-9: Total score 0 10/28/23 10:20 Depression Screening Interpretation: Negative Thrive Assessment: Date of Thrive Assessment Date Thrive assessed 10/28/23 10/28/23 10:09 Currently or been in a relationship where the following occur: no concerns reported Const General: healthy appearing, no acute distress, alert and awake Nutritional Appearance: well nourished Orientation/consciousness: oriented to person, oriented to place and oriented to time [facility] Ears: TM's normal bilaterally General nose exam: Normal nasal mucous membranes and turbinates present Eyes Conjunctivae: conjunctivae normal Sclerae: sclerae normal Pupils: Equal, round and reactive pupils present Neck Neck: Yes no lymphadenopathy and Yes no JVD Thyroid: Thyroid normal Carotids: no bruits Chest Chest/axillae images: 1. HYPERKERATOTIC LESION ON THE LEFT AREOLA REGION. Resp Effort & Inspection: normal respiratory effort and not tachypneic Auscultation: no crackles, no rales, no rhonchi and no wheezes Cardio Rate: regular rate Rhythm: regular rhythm Heart sounds: no murmurs and normal S1 and S2 GI Palpation (GI): Soft to palpation, nontender, no hepatomegaly and no splenomegaly Auscultation: normal bowel sounds Skin General skin exam: no rashes or lesions noted and dry skin Neuro General: oriented to person, oriented to place and oriented to time Cranial nerves: Yes Equal, round and reactive pupils present Speech: No Abnormal speech present Gait exam (Neuro): Normal gait present Motor exam (neuro): no tremor noted Extrem Right upper extremity: full ROM Left upper extremity: full ROM Right lower extremity: full ROM; no edema Left lower extremity: full ROM; no edema Psych Mental Status: mental status grossly normal Speech and movement: Normal speech and movement present Affect: normal affect Attitude: cooperative Thought process: Normal thought process present Assessment and Plan Assessment & Plan (1) Areolar keratitis: Code(s): H16.119 - Macular keratitis, unspecified eye Qualifiers: Laterality: left Qualified Code(s): H16.112 - Macular keratitis, left eye Plan: Lesion appears to be a hyperkeratotic lesion of the left areola. He will watch and wait and consider Dermatology evaluation. Orders: Orders Complete Blood Count no Diff 10/28/23 D64.9 - Anemia, unspecified Vitamin D 25-OH Total 10/28/23 R79.89 - Other specified abnormal findings of blood chemistry Comprehensive [place]. Panel Fast 10/28/23 Z13.1 - Encounter for screening for diabetes mellitus Prostate Specific Antigen Scr 10/28/23 Z12.5 - Encounter for screening for malignant neoplasm of prostate, Z13.1 - Encounter for screening for diabetes mellitus Coding Level of Care Code Est Pt Level 3 (46020) Diagnoses Areolar keratitis of left eye H16.112 Laterality: left Additional Codes ARSALAN-7 Assessment Billing - ARSALAN-7 Assessment Tool: ARSALAN-7 Assessment 89681 ([id number])
[2023-10-28 09:58] VITALS: BP 124/72; PULSE 84; O2SAT 98; BMI 24.9
== END 2023-10-28 10:32 | disposition home or self-care (01) ==
PROVIDERS: PCP Internal Medicine; Visit Provider Physician Assistant
DX: H16.11 Macular keratitis (principal)
CPT/HCPCS: 99213

== ENCOUNTER 2024-03-16 07:51 | Outpatient (AMB) | payer OTHER, SELFPAY ==
[2024-03-16 07:58] VITALS: BP 122/70; BMI 24.1
--- NOTE | 2024-03-16 07:58 | A.OFFPC_ITS ---
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: No Accompanied by: Self / Same As Patient Allergies Sulfa (Sulfonamide Antibiotics) [SULFA(SULFONAMIDE ANTIBIOTICS)] Allergy (Intermediate, Verified 03/16/24 08:07) HIVES Medication List - Last Reconciled 03/16/24 by Pee Mosquera PA-C cholecalciferol (vitamin D3) 25 mcg PO DAILY lactobacillus combination no.4 (Probiotic) 3,000 mmu cells PO DAILY lorazepam 0.5 mg PO DAILY PRN 30 days methylcellulose (laxative) (Citrucel) 500 mg PO DAILY sildenafil 100 mg PO DAILY tacrolimus 0.1% 1 appl topical DAILY Tobacco use date assessed: 10/28/23 Dental Screening Dental Screen Date: 10/28/23 HPI annual Exam HPI Details Patient is a 58-year-old male here today for routine annual physical.? Patient has a past history significant for vitamin-D deficiency, BPH generalized anxiety disorder. ARSALAN : Report having worsening anxiety. Reports his triggers are crowded places and his workplace.? He does use low-dose lorazepam on a very limited p.r.n. basis for panic attacks. Vaccine: Needs up-to-date tetanus vaccine, UTD with COVID vac , has gotten flu vaccine considering Shingles vaccine Colonoscopy: Done in 2023 polyp found- repeat 5 years [facility] Medical History Internal hemorrhoids without complication Diverticulosis Tubular adenoma of colon Peripheral vascular disease Macrocytosis without anemia Lyme disease Allergic rhinitis Vitamin D deficiency BPH (benign prostatic hyperplasia) Anxiety GERD (gastroesophageal reflux disease) Benign positional vertigo Erectile dysfunction Surgical History Hx of colonoscopy History of undescended testicle History of vasectomy History of inguinal hernia repair Family History Father Cancer Mother Hypertension Maternal Grandmother Myocardial infarction Social History (Updated 03/16/24 @ 08:12 by Pee Mosquera PA-C) Housing: House Alcohol intake: current Alcohol intake frequency: does not drink Alcohol type: beer Patient Tobacco Use Status: Never used Tobacco e-Cigarette/Vaping Use: Never Used Second Hand Smoke Exposure: No service: No Current occupational status: employed 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 1. Little interest or pleasure in doing things: not at all 2. Feeling down, depressed, or hopeless: not at all 3. Trouble falling or staying asleep, or sleeping too much: not at all 4. Feeling tired or having little energy: not at all 5. Poor appetite or overeating: not at all 6. Feeling bad about yourself - or that you are a failure or have let yourself or your family down: not at all 7. Trouble concentrating on things, such as reading the newspaper or watching television: not at all 8. Moving or speaking so slowly that other people could have noticed. Or the opposite - being so fidgety or restless that you have been moving around a lot more than usual: not at all 9. Thoughts that you would be better off or of hurting yourself in some way: not at all Total score: 0 Depression Screening Interpretation: Negative Depression Screening Done: Yes 24729 - PHQ-9 Billing: Yes Source: Developed by Drs. Percy Edward, Arabella Hinojosa, Remberto Hutchison and colleagues, with an educational liana from [employer]. Thrive Questionnaire Date Thrive assessed: 03/10/24 I am a: Patient What is your living situation today?: I have a steady place to live Within the past 12 months, did the food you bought not last and you didn't have the money to get more?: I choose not to answer this question Within the past 12 months, did you worry whether your food would run out before you got money to buy more?: I choose not to answer this question Do you have trouble paying for medicines?: No Do you have trouble getting transportation to medical appointments?: No Do you have trouble paying your heating and electricity bill?: No Do you have trouble taking care of your child, family member or friend?: I choose not to answer this question Do you have trouble with day-to-day activities such as bathing, preparing meals, shopping, managing finances, etc.?: No Are you currently unemployed and looking for a job?: No Are you interested in more education?: I choose not to answer this question Please select the resources that you would like help with: None Currently or been in a relationship where the following occur: I choose not to answer THRIVE Score: 0 AUDIT C Alcohol Use Questionnaire (AUDIT-C) 1. How often do you have a drink containing alcohol?: Never Total Score: 0 ARSALAN-7 AMB Questionnaire ARSALAN-7 Date ARSALAN - 7 assessed: 03/16/24 Feeling nervous, anxious, or on edge: 0 = Not at all Not being able to stop or control worryin = Not at all Worrying too much about different things: 0 = Not at all Trouble relaxin = Not at all Being so restless that it is hard to sit still: 0 = Not at all Becoming easily annoyed or irritable: 0 = Not at all Feeling afraid as if something awful might happen: 0 = Not at all Total ARSALAN-7 score (0-4 normal; 5-9 mild; 10-14 moderate; 15-21 severe): 0 Source: Developed by Drs. Percy Edward, Arabella Hinojosa, Remberto Hutchison and colleagues, with an educational liana from [employer]. ARSALAN-7 Assessment Billing ARSALAN-7 Assessment Tool: ARSALAN-7 Assessment 82866 Review of Systems Const Denies body aches, Denies chills, Denies excessive sweating, Denies fatigue, Denies fever(s) and Denies headache(s) Eyes Denies blurry vision ENT Denies dysphagia, Denies vertigo, Denies dizziness, Denies headache(s), Denies hearing loss and Denies tinnitus Card Denies chest pain, Denies chest pain with activity, Denies syncope, Denies irregular heart rhythm and Denies dyspnea Resp Denies chest congestion, Denies cough, Denies hemoptysis, Denies dyspnea and Denies wheezing GI Denies abdominal pain, Denies melena, Denies hematochezia, Denies coffee ground emesis, Denies dysphagia, Denies diarrhea, Denies nausea and Denies vomiting Denies difficulty urinating, Denies dysuria, Denies urinary frequency, Denies urinary hesitancy and Denies urinary urgency Musc Denies arthralgias, Denies limited range of motion, Denies muscle cramps and Denies muscle weakness Skin/Breast Denies rash and Denies skin ulcer Neuro Denies Abnormal speech present, Denies confusion, Denies vertigo, Denies dizziness, Denies syncope, Denies headache(s), Denies memory loss and Denies seizure-like activity Psych Denies anxiety, Denies confusion, Denies depression, Denies memory loss, Denies panic attacks and Denies paranoia Endo Denies excessive sweating, Denies fatigue, Denies flushing, Denies polydipsia and Denies polyuria Aller/Immun Denies wheezing Physical exam (Primary Care) Vital Signs: Last Vital Signs BP 122/70 03/16/24 07:58 BMI result Body Mass Index 24.1 Tobacco/Smoking Status: Tobacco use Status Tobacco use date assessed 10/28/23 03/16/24 08:01 Patient Tobacco Use Status Never used Tobacco 03/16/24 08:12 Tobacco use type 03/06/22 08:59 e-Cigarette/Vaping Use Never Used 03/16/24 08:12 PHQ-9: PHQ-9 Score PHQ-9: Total score 0 03/16/24 08:36 Depression Screening Interpretation: Negative Thrive Assessment: Date of Thrive Assessment Date Thrive assessed 03/10/24 03/16/24 08:01 Currently or been in a relationship where the following occur: I choose not to answer Const General: cooperative, comfortable, no acute distress, alert and awake; No confusion Orientation/consciousness: oriented to person, oriented to place, patient oriented x3 and No confusion HENMT Head: Yes normocephalic Ears: external ears normal and TM's normal bilaterally Face and sinus: No sinus tenderness Mouth: Normal oral and palatal mucosa present and tongue normal Teeth and gingiva: dentition normal and gingiva normal Throat: Yes posterior oropharynx normal, Yes tonsils normal and Yes uvula midline Eyes Conjunctivae: conjunctivae normal Sclerae: sclerae normal Pupils: Equal, round and reactive pupils present EOM: EOMs intact bilaterally Direct Ophthalmoscopy: No no photophobia Neck Neck: Yes no lymphadenopathy, No tender and Yes no JVD Thyroid: Thyroid normal Carotids: no bruits Chest Chest palpation & inspection: no tenderness Resp Effort & Inspection: normal respiratory effort, no audible wheezes, not labored and no stridor Auscultation: no crackles, no rales, no rhonchi and no wheezes Cardio Jugular venous distension: no JVD Rate: regular rate, not bradycardic and not tachycardic Rhythm: regular rhythm Bruits: no carotid bruits Peripheral pulses: Peripheral pulses 2+ throughout GI Inspection: Yes normal to inspection, No abdominal wall ecchymosis and No visible herniation Palpation (GI): Soft to palpation, nontender, no guarding, not rigid and No hepatosplenomegaly present Auscultation: normoactive bowel sounds General: Yes no CVA tenderness Back/Spine/Pelvis Back: no CVA tenderness and No back tenderness Cervical Spine: cervical ROM normal Thoracic/Lumbar Spine: thoracic and lumbar spine normal to inspection, straight leg raise negative bilaterally, No thoraco-lumbar ROM limited and No lumbar spinal tenderness Skin Lesions: no lesions Rashes: no rashes Wounds: no wounds Neuro General: oriented to person, oriented to place, patient oriented x3, CN's II-XI intact bilaterally and No confusion Cranial nerves: Yes Equal, round and reactive pupils present and Yes Normal accommodation reflex present Cognition (Neuro): normal cognition Speech: No Abnormal speech present Gait exam (Neuro): Normal gait present Motor exam (neuro): 5/5 motor strength present throughout Extrem Right upper extremity: full ROM; no cyanosis Left upper extremity: full ROM; no cyanosis Right lower extremity: no edema Left lower extremity: no edema Psych Appearance: grossly normal Mental Status: mental status grossly normal Affect: normal affect Attitude: cooperative Thought process: Normal thought process present Office Procedures Flu Questionnaire Does the patient have a severe egg allergy?: No Does the patient have severe life threatening allergies?: No Does the patient have a fever or illness today?: No Has the patient ever had Guillain-[place] Syndrome?: No Has the patient ever had any past reaction to a flu shot?: No Immunizations Fluarix Triv 2259-2410 (PF) 45 mcg (15 mcg x 3)/0.5 mL IM syringe Performing Provider: Pee Mosquera PA-C Performing Location: [facility] [place] [facility] Administered by: HERMILO Bell on 03/16/24 08:33 Dose Route Admin Location Dispensed Lot Number Expiration Date [facility] Insurance Agents Supervisor 0.5 mL IM Left Deltoid 0.5 mL [id number] 11/16/24 [id number] [employer] VIS Given Date VIS Provided VIS Publication Date 03/16/24 Single Vaccine 20 Eligibility Eligibility Date Funding Source Not VF Eligible 03/16/24 Private Boostrix Tdap 2.5 Lf unit-8 mcg-5 Lf/0.5 mL intramuscular syringe Performing Provider: Pee Mosquera PA-C Performing Location: [facility] [place] [facility] Administered by: HERMILO Bell on 03/16/24 08:33 Dose Route Admin Location Dispensed Lot Number Expiration Date [facility] Insurance Agents Supervisor 0.5 mL IM Right Deltoid 0.5 mL [id number] 04/04/26 [id number] [employer] GuidesITHKLINE VIS Given Date VIS Provided VIS Publication Date 03/16/24 Single Vaccine 20 Eligibility Eligibility Date Funding Source Not [facility] Eligible 03/16/24 Private Coding Level of Care Code Est Pt Prev Care 40-64y([id number]) Diagnoses Annual physical exam Z00.00 Tubular adenoma of colon D12.6 ARSALAN (generalized anxiety disorder) F41.1 Additional Codes ARSALAN-7 Assessment Billing - ARSALAN-7 Assessment Tool: ARSALAN-7 Assessment [id number] ([id number]) Assessment & Plan Assessment & Plan (1) Annual physical exam: Code(s): Z00.00 - Encounter for general adult medical examination without abnormal findings Category: Medical Plan: As per [facility] (2) Tubular adenoma of colon: Code(s): D12.6 - Benign neoplasm of colon, unspecified Category: Medical Plan: Colonoscopy done in 2023. Tubular adenoma polyp found. Repeat 5 years (3) ARSALAN (generalized anxiety disorder): Code(s): F41.1 - Generalized anxiety disorder Category: Medical Plan: Patient reports his anxiety has been fairly well controlled. Does use lorazepam on a p.r.n. basis with good effect. Orders: Orders TDaP Immunization Today Z23 - Encounter for immunization Influenza [id number] Immunization Today Z23 - Encounter for immunization Medications: Refilled lorazepam 0.5 mg PO DAILY PRN 30 tabs 1RF anxiety 30 days F41.1 - Generalized anxiety disorder
== END 2024-03-16 08:35 | disposition home or self-care (01) ==
PROVIDERS: PCP Internal Medicine; Visit Provider Physician Assistant
DX: Z00.00 Encounter for general adult medical examination without abnormal findings (principal); D12.6 Benign neoplasm of colon, unspecified; F41.1 Generalized anxiety disorder; Z23 Encounter for immunization

== ENCOUNTER → 2024-03-16 07:51 | Outpatient (BNVA) | payer OTHER, SELFPAY | PROVIDERS: PCP Internal Medicine; Visit Provider Physician Assistant | DX: Z00.00 Encounter for general adult medical examination without abnormal findings (principal); F41.1 Generalized anxiety disorder; Z86.0101 Personal history of adenomatous and serrated colon polyps; Z23 Encounter for immunization | CPT/HCPCS: 90471; 90472; 90656; 90715; 96127 ==

== ENCOUNTER 2024-03-25 07:04 | Outpatient (REF) | payer OTHER, SELFPAY ==
[2024-03-25 07:47] LABS: Mean Corpuscular HGB Conc 34.1 g/dl (31.0-36.0); Mean Corpuscular Hemoglobin 30.3 pg (27.0-33.0); Mean Corpuscular Volume 88.7 fL (80.0-98.0); Platelet Count 208 X10*3/uL (160-400); Red Blood Count 4.62 X10*6/uL (4.60-5.80); Red Cell Distribution Width 13.3 % (11.0-16.0); White Blood Count 5.3 X10*3/uL (4.8-10.8)
[2024-03-25 08:17] LABS: Alanine Aminotransferase 40 U/L (0-40); Albumin Level 4.4 g/dL (3.5-5.0); Alkaline Phosphatase 61 U/L (39-117); Anion Gap 15 (12-20); Aspartate Amino Transferase 29 U/L (5-37); Bilirubin Total 0.8 mg/dL (0.0-1.0); Blood Urea Nitrogen 13 mg/dL (9-16); Calcium 9.4 mg/dL (8.4-10.2); Carbon Dioxide 23 mmol/L (22-29); Chloride 107 mmol/L (96-108); Estimated Glomerular Filt Rate > 60; Glucose Fasting 107 mg/dL (60-99); Potassium 4.2 mmol/L (3.3-5.1); Sodium 141 mmol/L (135-145); Total Protein 7.2 g/dL (6.5-8.0)
[2024-03-25 08:29] LABS: Prostate Specific Antigen Scr 0.45 ng/mL (<0.05-4.0)
[2024-03-25 08:38] LABS: Vitamin D 25-OH Total 36.3 ng/mL (>30)
== END 2024-03-25 07:05 | disposition home or self-care (01) ==
LOC: HO.LAB 07:04
PROVIDERS: PCP Physician Assistant; Visit Provider Physician Assistant
DX: D64.9 Anemia, unspecified (principal); R79.89 Other specified abnormal findings of blood chemistry; Z13.1 Encounter for screening for diabetes mellitus; Z12.5 Encounter for screening for malignant neoplasm of prostate
CPT/HCPCS: 36415; 80053; 82306; 84153; 85027

== ENCOUNTER 2024-09-07 11:07 | Outpatient (AMB) | payer OTHER, SELFPAY ==
--- NOTE | 2024-09-07 11:23 | A.OFFPC_ITS ---
Vital Signs 3 09/07/24 11:28 Height 5 ft 5 in Weight 154 lb 8 oz BMI 25.7 BP 124/64 Blood Pressure Location Lt brachial Position Sitting Pulse 88 Pulse Source Pulse Oximeter Temp 97.3 F Temp Source Temporal Artery Scan Pulse Oximetry (%) 98 Oxygen Delivery Method Room Air Intake Visit Reasons: back pain Intake Note: Patient presents with low back pain for the past two weeks, which began after reaching for an item that had fallen while seated. The patient reports possibly twisting in the wrong direction at the time, which may have resulted in a pulled muscle.. Attendant Self [employer] Store Required: No Accompanied by: Self / Same As Patient Allergies Sulfa (Sulfonamide Antibiotics) [SULFA(SULFONAMIDE ANTIBIOTICS)] Allergy (Intermediate, Verified 09/07/24 11:46) HIVES Medication List - Last Reconciled 09/07/24 by Pee Mosquera PA-C cholecalciferol (vitamin D3) 25 mcg PO DAILY lactobacillus combination no.4 (Probiotic) 3,000 mmu cells PO DAILY lorazepam 0.5 mg PO DAILY PRN 30 days methylcellulose (laxative) (Citrucel) 500 mg PO DAILY sildenafil 100 mg PO DAILY tacrolimus 0.1% 1 appl topical DAILY Tobacco use date assessed: 09/07/24 Dental Screening Dental Screen Date: 09/07/24 Did you have a dental visit in the last 12 months?: Yes Did you have a dental problem in the last 6 months where you did not have access to dental care?: No Was dental information given to patient?: Patient has dentist HPI back pain 2 HPI0 Details The patient is a 59-year-old male presenting with lower back pain, initially starting on the right side following a twisting movement while working on a toilet pump in April of the previous year. The incident caused pain radiating down the right leg associated with cramping and tingling in the right foot, which persisted until July. Upon resolution of symptoms on the right, the patient began experiencing similar pain localized to the left side, without lower extremity symptoms. The pain intensity increases with activities such as bending and sneezing, affecting the patient's daily and work activities. Sleep is disturbed due to pain when turning. The patient reports no numbness, tingling, or previous back problems. [facility] Medical History Internal hemorrhoids without complication Diverticulosis Tubular adenoma of colon Peripheral vascular disease Macrocytosis without anemia Lyme disease Allergic rhinitis Vitamin D deficiency BPH (benign prostatic hyperplasia) Anxiety GERD (gastroesophageal reflux disease) Benign positional vertigo Erectile dysfunction Surgical History Hx of colonoscopy History of undescended testicle History of vasectomy History of inguinal hernia repair Family History Father Cancer Mother Hypertension Maternal Grandmother Myocardial infarction Social History Housing: House Alcohol intake: current Alcohol intake frequency: does not drink Alcohol type: beer Patient Tobacco Use Status: Never used Tobacco e-Cigarette/Vaping Use: Never Used Second Hand Smoke Exposure: No service: No Current occupational status: employed 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 1. Little interest or pleasure in doing things: not at all 2. Feeling down, depressed, or hopeless: not at all 3. Trouble falling or staying asleep, or sleeping too much: not at all 4. Feeling tired or having little energy: not at all 5. Poor appetite or overeating: not at all 6. Feeling bad about yourself - or that you are a failure or have let yourself or your family down: not at all 7. Trouble concentrating on things, such as reading the newspaper or watching television: not at all 8. Moving or speaking so slowly that other people could have noticed. Or the opposite - being so fidgety or restless that you have been moving around a lot more than usual: not at all 9. Thoughts that you would be better off or of hurting yourself in some way: not at all Total score: 0 Depression Screening Interpretation: Negative Depression Screening Done: Yes 62438 - PHQ-9 Billing: Yes Source: Developed by Drs. Percy Edward, Arabella Hinojosa, Remberto Hutchison and colleagues, with an educational liana from [employer]. Thrive Questionnaire Date Thrive assessed: 09/07/24 AUDIT C Alcohol Use Questionnaire (AUDIT-C) 1. How often do you have a drink containing alcohol?: Never 3. How often do you have six or more drinks on one occasion?: Never Total Score: 0 ARSALAN-7 AMB Questionnaire ARSALAN-7 Date ARSALAN - 7 assessed: 09/07/24 Feeling nervous, anxious, or on edge: 0 = Not at all Not being able to stop or control worryin = Not at all Worrying too much about different things: 0 = Not at all Trouble relaxin = Not at all Being so restless that it is hard to sit still: 0 = Not at all Becoming easily annoyed or irritable: 0 = Not at all Feeling afraid as if something awful might happen: 0 = Not at all Total ARSALAN-7 score (0-4 normal; 5-9 mild; 10-14 moderate; 15-21 severe): 0 Source: Developed by Drs. Percy Edward, Arabella Hinojosa, Remberto Hutchison and colleagues, with an educational liana from [employer]. ARSALAN-7 Assessment Billing ARSALAN-7 Assessment Tool: ARSALAN-7 Assessment 68962 Review of Systems Const Denies headache(s) Eyes Denies loss of vision ENT Denies vertigo, Denies dizziness, Denies headache(s) and Denies sore throat Card Denies chest pain, Denies leg edema and Denies lightheadedness Resp Denies cough, Denies hemoptysis and Denies wheezing GI Denies abdominal pain, Denies melena, Denies constipation, Denies diarrhea and Denies vomiting Denies dysuria, Denies urinary frequency and Denies urinary urgency Musc Denies arthralgias, Denies joint swelling, Denies numbness and Denies tingling Neuro Denies Abnormal speech present, Denies behavioral changes, Denies vertigo, Denies dizziness, Denies headache(s), Denies loss of vision, Denies memory loss, Denies numbness and Denies tingling Psych Denies anxiety, Denies behavioral changes, Denies depression, Denies memory loss and Denies panic attacks Sher/Lymph Denies easy bleeding and Denies easy bruising Aller/Immun Denies wheezing Physical exam (Primary Care) Vital Signs: Last Vital Signs Temp 97.3 F 04/21/25 11:28 Pulse 88 09/07/24 11:28 BP 124/64 09/07/24 11:28 Pulse Ox 98 09/07/24 11:28 Oxygen Delivery Method Room Air 09/07/24 11:28 BMI result Body Mass Index 25.7 Tobacco/Smoking Status: Tobacco use Status Tobacco use date assessed 09/07/24 09/07/24 11:32 Patient Tobacco Use Status Never used Tobacco 09/07/24 11:26 Tobacco use type 09/07/24 11:01 e-Cigarette/Vaping Use Never Used 09/07/24 11:26 PHQ-9: PHQ-9 Score PHQ-9: Total score 0 09/07/24 11:26 Depression Screening Interpretation: Negative Thrive Assessment: Date of Thrive Assessment Date Thrive assessed 09/07/24 09/07/24 11:26 Const General: healthy appearing, no acute distress, alert and awake Nutritional Appearance: well nourished Orientation/consciousness: oriented to person, oriented to place and oriented to time HENMT Ears: TM's normal bilaterally General nose exam: Normal nasal mucous membranes and turbinates present Eyes Conjunctivae: conjunctivae normal Sclerae: sclerae normal Pupils: Equal, round and reactive pupils present Neck Neck: Yes no lymphadenopathy and Yes no JVD Thyroid: Thyroid normal Carotids: no bruits Resp Effort & Inspection: normal respiratory effort and not tachypneic Auscultation: no crackles, no rales, no rhonchi and no wheezes Cardio Rate: regular rate Rhythm: regular rhythm Heart sounds: no murmurs and normal S1 and S2 GI Palpation (GI): Soft to palpation, nontender, no hepatomegaly and no splenomegaly Auscultation: normal bowel sounds Back/Spine/Pelvis Back/spine/pelvis image: 2 1. PAIN LOCATED IN THE AREA OUTLINED WITH FLEXION AND EXTENSION OF THE HIPS. Skin General skin exam: no rashes or lesions noted and dry skin Neuro General: oriented to person, oriented to place and oriented to time Cranial nerves: Yes Equal, round and reactive pupils present Speech: No Abnormal speech present Gait exam (Neuro): Normal gait present Motor exam (neuro): no tremor noted Extrem Right upper extremity: full ROM Left upper extremity: full ROM Right lower extremity: full ROM; no edema Left lower extremity: full ROM; no edema Psych Mental Status: mental status grossly normal Speech and movement: Normal speech and movement present Affect: normal affect Attitude: cooperative Thought process: Normal thought process present Coding Level of Care Code Est Pt Level 3 (02677) Diagnoses Lumbar radiculopathy M54.16 Sacroiliac inflammation M46.1 Additional Codes ARSALAN-7 Assessment Billing - ARSALAN-7 Assessment Tool: ARSALAN-7 Assessment 36566 ([id number]) PHQ-9 - 88429 - PHQ-9 Billing: Yes ([id number]) Assessment & Plan Assessment & Plan (1) Lumbar radiculopathy: Code(s): M54.16 - Radiculopathy, lumbar region Category: Medical Plan: The patient will receive baclofen for nighttime muscle relaxation and diclofenac during the day as an anti-inflammatory agent. An X-ray of the lumbar spine is ordered to evaluate underlying skeletal causes. (2) Sacroiliac inflammation: Code(s): M46.1 - Sacroiliitis, not elsewhere classified Category: Medical Plan: X-rays of the sacroiliac area are recommended to assess potential inflammation. Treatment includes diclofenac for inflammation, and referral for physical therapy is considered based on response to medication and X-ray findings. Orders: Orders 2 Comprehensive [facility]. Panel Fast Today Z13.1 - Encounter for screening for diabetes mellitus Vitamin D 25-OH Total Today R79.89 - Other specified abnormal findings of blood chemistry Syphilis Screen Today Z11.3 - Encounter for screening for infections with a predominantly sexual mode of transmission XR lumbar spine 4V min Today M54.16 - Radiculopathy, lumbar region XR sacroiliac joint min 3V Today M46.1 - Sacroiliitis, not elsewhere classified, M54.16 - Radiculopathy, lumbar region Complete Blood Count no Diff Today Z13.1 - Encounter for screening for diabetes mellitus CT NG by PCR Today Z11.3 - Encounter for screening for infections with a predominantly sexual mode of transmission, Z20.2 - Contact with and (suspected) exposure to infections with a predominantly sexual mode of transmission Prostate Specific Antigen Scr Today Z11.3 - Encounter for screening for infections with a predominantly sexual mode of transmission, Z12.5 - Encounter for screening for malignant neoplasm of prostate Medications: New 2 baclofen 10 mg PO BEDTIME 10 days 10 tabs 0RF M54.16 - Radiculopathy, lumbar region diclofenac sodium 75 mg PO BID 15 days 30 tabs 0RF M54.16 - Radiculopathy, lumbar region Changed 2 From sildenafil 100 mg PO DAILY 6 tabs 12RF N52.9 - Male erectile dysfunction, unspecified To sildenafil 100 mg PO DAILY 30 days 6 tabs 3RF N52.9 - Male erectile dysfunction, unspecified From tacrolimus 0.1% 1 appl topical DAILY L98.9 - Disorder of the skin and subcutaneous tissue, unspecified To tacrolimus 0.1% 1 appl topical DAILY 30 days 60 grams 0RF L98.9 - Disorder of the skin and subcutaneous tissue, unspecified
[2024-09-07 11:28] VITALS: BP 124/64; PULSE 88; TEMP 36.3; O2SAT 98; BMI 25.7
== END 2024-09-07 12:04 | disposition home or self-care (01) ==
LOC: HO.HMCH 11:08
PROVIDERS: PCP Physician Assistant; Visit Provider Physician Assistant
DX: M54.16 Radiculopathy, lumbar region (principal); M46.1 Sacroiliitis, not elsewhere classified

== ENCOUNTER → 2024-09-07 11:07 | Outpatient (BNVA) | payer OTHER, SELFPAY | PROVIDERS: PCP Physician Assistant; Visit Provider Physician Assistant | DX: M54.16 Radiculopathy, lumbar region (principal); M46.1 Sacroiliitis, not elsewhere classified | CPT/HCPCS: 96127 ==

== ENCOUNTER 2025-03-22 07:52 | Outpatient (AMB) | payer OTHER, SELFPAY ==
--- NOTE | 2025-03-22 08:07 | A.OFFPC_ITS ---
Vital Signs 03/22/25 08:08 Height 5 ft 5 in Weight 153 lb 2 oz BMI 25.5 BP 130/70 Blood Pressure Location Lt brachial Position Sitting Pulse 96 Pulse Source Pulse Oximeter Temp 97.3 F Temp Source Temporal Artery Scan Pulse Oximetry (%) 96 Oxygen Delivery Method Room Air Intake Visit Reasons: Annual Exam Intake Note: Patient is here today for a physical. 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 Accompanied by: Self / Same As Patient Allergies Sulfa (Sulfonamide Antibiotics) (SULFA(SULFONAMIDE ANTIBIOTICS)) Allergy (Intermediate, Verified 03/22/25 08:14) HIVES Medication List - Last Reconciled 03/22/25 by Pee Mosquera PA-C baclofen 10 mg PO BEDTIME 10 days cholecalciferol (vitamin D3) 25 mcg PO DAILY diclofenac sodium 75 mg PO BID 15 days lactobacillus combination no.4 (Probiotic) 3,000 mmu cells PO DAILY lorazepam 0.5 mg PO DAILY PRN 30 days methylcellulose (laxative) (Citrucel) 500 mg PO DAILY sildenafil 100 mg PO DAILY 30 days tacrolimus 0.1% 1 appl topical DAILY 30 days Tobacco use date assessed: 03/22/25 Dental Screening Dental Screen Date: 09/07/24 HPI Annual Exam HPI Details Patient is a 59-year-old male here today for routine annual physical.? Patient has a past history significant for vitamin-D deficiency, BPH generalized anxiety disorder. ARSALAN : Report having worsening anxiety. Reports his triggers are crowded places and his workplace.? He does use low-dose lorazepam on a very limited p.r.n. basis for panic attacks. Vaccine: Up-to-date with tetanus, UTD with COVID vac , considering Shingles vac , Need Flu vaccine, unknown if had varicella has a child Colonoscopy: Done in 2023 polyp found- repeat 5 years [facility] Medical History Areolar keratitis Internal hemorrhoids without complication Diverticulosis Tubular adenoma of colon Peripheral vascular disease Macrocytosis without anemia Lyme disease Allergic rhinitis Vitamin D deficiency BPH (benign prostatic hyperplasia) Anxiety GERD (gastroesophageal reflux disease) Benign positional vertigo Erectile dysfunction Surgical History Hx of colonoscopy History of undescended testicle History of vasectomy History of inguinal hernia repair Family History Father Cancer Mother Hypertension Maternal Grandmother Myocardial infarction Social History Housing: House Alcohol intake: current Alcohol intake frequency: does not drink Alcohol type: beer Patient Tobacco Use Status: Never used Tobacco e-Cigarette/Vaping Use: Never Used Second Hand Smoke Exposure: No service: No Current occupational status: employed 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 1. Little interest or pleasure in doing things: not at all 2. Feeling down, depressed, or hopeless: not at all 3. Trouble falling or staying asleep, or sleeping too much: not at all 4. Feeling tired or having little energy: not at all 5. Poor appetite or overeating: not at all 6. Feeling bad about yourself - or that you are a failure or have let yourself or your family down: not at all 7. Trouble concentrating on things, such as reading the newspaper or watching television: not at all 8. Moving or speaking so slowly that other people could have noticed. Or the opposite - being so fidgety or restless that you have been moving around a lot more than usual: not at all 9. Thoughts that you would be better off or of hurting yourself in some way: not at all Total score: 0 Depression Screening Interpretation: Negative Depression Screening Done: Yes Source: Developed by Drs. Percy Edward, Arabella Hinojosa, Remberto Hutchison and colleagues, with an educational liana from [email or web address]. Thrive Questionnaire Date Thrive assessed: 03/21/25 I am a: Patient What is your living situation today?: I have a steady place to live Within the past 12 months, did the food you bought not last and you didn't have the money to get more?: I choose not to answer this question Within the past 12 months, did you worry whether your food would run out before you got money to buy more?: I choose not to answer this question Do you have trouble paying for medicines?: No Do you have trouble getting transportation to medical appointments?: No Do you have trouble paying your heating and electricity bill?: No Do you have trouble taking care of your child, family member or friend?: No Do you have trouble with day-to-day activities such as bathing, preparing meals, shopping, managing finances, etc.?: No Are you currently unemployed and looking for a job?: No Are you interested in more education?: I choose not to answer this question Please select the resources that you would like help with: None Currently or been in a relationship where the following occur: I choose not to answer THRIVE Score: 0 AUDIT C Alcohol Use Questionnaire (AUDIT-C) 1. How often do you have a drink containing alcohol?: Never 2. How many drinks containing alcohol do you have on a typical day when you are drinking?: 1 or 2 3. How often do you have six or more drinks on one occasion?: Never Total Score: 0 ARSALAN-7 AMB Questionnaire ARSALAN-7 Date ARSALAN - 7 assessed: 09/07/24 Feeling nervous, anxious, or on edge: 0 = Not at all Not being able to stop or control worryin = Not at all Worrying too much about different things: 0 = Not at all Trouble relaxin = Not at all Being so restless that it is hard to sit still: 0 = Not at all Becoming easily annoyed or irritable: 0 = Not at all Feeling afraid as if something awful might happen: 0 = Not at all Total ARSALAN-7 score (0-4 normal; 5-9 mild; 10-14 moderate; 15-21 severe): 0 Source: Developed by Drs. Percy Edward, Arabella Hinjoosa, Remberto Hutchison and colleagues, with an educational liana from [email or web address]. ARSALAN-7 Assessment Billing ARSALAN-7 Assessment Tool: ARSALAN-7 Assessment 41504 Review of Systems Const Denies body aches, Denies chills, Denies excessive sweating, Denies fatigue, Denies fever(s) and Denies headache(s) Eyes Denies blurry vision ENT Denies dysphagia, Denies vertigo, Denies dizziness, Denies headache(s), Denies hearing loss and Denies tinnitus Card Denies chest pain, Denies chest pain with activity, Denies syncope, Denies irr egular heart rhythm and Denies dyspnea Resp Denies chest congestion, Denies cough, Denies hemoptysis, Denies dyspnea and Denies wheezing GI Denies abdominal pain, Denies melena, Denies hematochezia, Denies coffee ground emesis, Denies dysphagia, Denies diarrhea, Denies nausea and Denies vomiting Denies difficulty urinating, Denies dysuria, Denies urinary frequency, Denies urinary hesitancy and Denies urinary urgency Musc Denies arthralgias, Denies limited range of motion, Denies muscle cramps and Denies muscle weakness Skin/Breast Denies rash and Denies skin ulcer Neuro Denies Abnormal speech present, Denies confusion, Denies vertigo, Denies dizziness, Denies syncope, Denies headache(s), Denies memory loss and Denies seizure-like activity Psych Denies anxiety, Denies confusion, Denies depression, Denies memory loss, Denies panic attacks and Denies paranoia Endo Denies excessive sweating, Denies fatigue, Denies flushing, Denies polydipsia and Denies polyuria Aller/Immun Denies wheezing Physical exam (Primary Care) Vital Signs: Last Vital Signs Temp 97.3 F 03/22/25 08:08 Pulse 96 03/22/25 08:08 BP 130/70 03/22/25 08:08 Pulse Ox 96 03/22/25 08:08 Oxygen Delivery Method Room Air 03/22/25 08:08 BMI result Body Mass Index 25.5 Tobacco/Smoking Status: Tobacco use Status Tobacco use date assessed 03/22/25 03/22/25 08:12 Patient Tobacco Use Status Never used Tobacco 03/22/25 08:12 Tobacco use type 09/07/24 11:01 e-Cigarette/Vaping Use Never Used 03/22/25 08:12 PHQ-9: PHQ-9 Score PHQ-9: Total score 0 03/22/25 08:14 Depression Screening Interpretation: Negative Thrive Assessment: Date of Thrive Assessment Date Thrive assessed 03/21/25 03/22/25 08:12 Currently or been in a relationship where the following occur: I choose not to answer Const General: cooperative, comfortable, no acute distress, alert and awake; No confusion Orientation/consciousness: oriented to person, oriented to place, patient oriented x3 and No confusion HENMT Head: Yes normocephalic Ears: external ears normal and TM's normal bilaterally Face and sinus: No sinus tenderness Mouth: Normal oral and palatal mucosa present and tongue normal Teeth and gingiva: dentition normal and gingiva normal Throat: Yes posterior oropharynx normal, Yes tonsils normal and Yes uvula midline Eyes Conjunctivae: conjunctivae normal Sclerae: sclerae normal Pupils: Equal, round and reactive pupils present EOM: EOMs intact bilaterally Direct Ophthalmoscopy: No no photophobia Neck Neck: Yes no lymphadenopathy, No tender and Yes no JVD Thyroid: Thyroid normal Carotids: no bruits Chest Chest palpation & inspection: no tenderness Resp Effort & Inspection: normal respiratory effort, no audible wheezes, not labored and no stridor Auscultation: no crackles, no rales, no rhonchi and no wheezes Cardio Jugular venous distension: no JVD Rate: regular rate, not bradycardic and not tachycardic Rhythm: regular rhythm Bruits: no carotid bruits Peripheral pulses: Peripheral pulses 2+ throughout GI Inspection: Yes normal to inspection, No abdominal wall ecchymosis and No visible herniation Palpation (GI): Soft to palpation, nontender, no guarding, not rigid and No hepatosplenomegaly present Auscultation: normoactive bowel sounds General: Yes no CVA tenderness Back/Spine/Pelvis Back: no CVA tenderness and No back tenderness Cervical Spine: cervical ROM normal Thoracic/Lumbar Spine: thoracic and lumbar spine normal to inspection, straight leg raise negative bilaterally, No thoraco-lumbar ROM limited and No lumbar spinal tenderness Skin Lesions: no lesions Rashes: no rashes Wounds: no wounds Neuro General: oriented to person, oriented to place, patient oriented x3, CN's II-XI intact bilaterally and No confusion Cranial nerves: Yes Equal, round and reactive pupils present and Yes Normal accommodation reflex present Cognition (Neuro): normal cognition Speech: No Abnormal speech present Gait exam (Neuro): Normal gait present Motor exam (neuro): 5/5 motor strength present throughout Extrem Right upper extremity: full ROM; no cyanosis Left upper extremity: full ROM; no cyanosis Right lower extremity: no edema Left lower extremity: no edema Psych Appearance: grossly normal Mental Status: mental status grossly normal Affect: normal affect Attitude: cooperative Thought process: Normal thought process present Office Procedures Flu Questionnaire Does the patient have a severe egg allergy?: No Does the patient have severe life threatening allergies?: No Does the patient have a fever or illness today?: No Has the patient ever had Guillain-Pingree Syndrome?: No Has the patient ever had any past reaction to a flu shot?: No Immunizations Fluarix [id number] (PF) 45 mcg (15 mcg x 3)/0.5 mL IM syringe Performing Provider: Pee Mosquera PA-C [facility] Administered by: Charisse Polk LPN on 03/22/25 08:39 Dose Route Admin Location Dispensed Lot Number Expiration Date NDC Manager Water 0.5 mL IM Left Deltoid 0.5 mL [id number] 11/16/25 84025-467-97 Truly Accomplished VIS Given Date VIS Provided VIS Publication Date 03/22/25 Single Vaccine 24 Eligibility Eligibility Date Funding Source Not [facility] Eligible 03/22/25 Private Coding Level of Care Code Est Pt Prev Care 40-64y(59098) Diagnoses Annual physical exam Z00.00 ARSALAN (generalized anxiety disorder) F41.1 Allergic rhinitis, unspecified seasonality, unspecified trigger J30.9 Allergic rhinitis trigger: unspecified Allergic rhinitis seasonality: unspecified Additional Codes ARSALAN-7 Assessment Billing - ARSALAN-7 Assessment Tool: ARSALAN-7 Assessment 32376 ([id number]) Assessment & Plan Assessment & Plan (1) Annual physical exam: Code(s): Z00.00 - Encounter for general adult medical examination without abnormal findings Category: Medical Plan: As per HPI (2) ARSALAN (generalized anxiety disorder): Code(s): F41.1 - Generalized anxiety disorder Category: Medical Plan: Patient reports his anxiety has been fairly well controlled. Does use lorazepam on a p.r.n. basis with good effect. (3) Allergic rhinitis: Code(s): J30.9 - Allergic rhinitis, unspecified Category: Medical Qualifiers: Allergic rhinitis trigger: unspecified Allergic rhinitis seasonality: unspecified Qualified Code(s): J30.9 - Allergic rhinitis, unspecified Plan: Patient does have year-round allergies to which she takes [id number] allergy medication with decent affect. Orders: Orders Varicella IgG Antibody Today Z78.9 - Other specified health status Testosterone, Free/Total Today R68.82 - Decreased libido Influenza [id number] Immunization Today Z23 - Encounter for immunization
[2025-03-22 08:08] VITALS: BP 130/70; PULSE 96; TEMP 36.3; O2SAT 96; BMI 25.5
== END 2025-03-22 08:37 | disposition home or self-care (01) ==
LOC: HO.HMCH 07:53
PROVIDERS: PCP Physician Assistant; Visit Provider Physician Assistant
DX: Z00.00 Encounter for general adult medical examination without abnormal findings (principal); F41.1 Generalized anxiety disorder; J30.9 Allergic rhinitis, unspecified; Z23 Encounter for immunization

== ENCOUNTER → 2025-03-22 07:52 | Outpatient (BNVA) | payer OTHER, SELFPAY | PROVIDERS: PCP Internal Medicine; Visit Provider Physician Assistant | DX: Z00.00 Encounter for general adult medical examination without abnormal findings (principal); E55.9 Vitamin D deficiency, unspecified; N40.0 Benign prostatic hyperplasia without lower urinary tract symptoms; F41.1 Generalized anxiety disorder; J30.9 Allergic rhinitis, unspecified; R68.82 Decreased libido; Z23 Encounter for immunization | CPT/HCPCS: 90471; 90656; 96127 ==

== ENCOUNTER 2025-03-29 07:31 | Outpatient (REF) | payer OTHER, SELFPAY ==
[2025-04-03 15:54] LABS: Testosterone, Free 89.0 pg/mL (35.0-155.0)
== END 2025-03-29 07:32 | disposition home or self-care (01) ==
LOC: HO.LAB 07:31
PROVIDERS: PCP Internal Medicine; Visit Provider Physician Assistant
DX: R68.82 Decreased libido (principal); Z78.9 Other specified health status
CPT/HCPCS: 36415; 84402; 84403; 86787